=== PATIENT | male | born 1960 | race Caucasian/White ===

== ENCOUNTER 2020-02-19 10:27 | Observation (INO) | payer OTHER, SELFPAY ==
[2020-02-19] VITALS (12 sets, daily range): BP systolic 113–154; BP diastolic 64–99; PULSE 67–96; RESP 12–24; TEMP 35.8–36.7; O2SAT 94–100
--- NOTE | ~2020-02-19 | XR_ITS ---
EXAMINATION: XR retrograde pyelo w/stent RT DATE: 02/19/2020 17:19 INDICATION: Right ureteral stones. TECHNIQUE: 5 intraoperative fluoroscopic views of the abdomen and pelvis were obtained. I was not pre sent. Fluoroscopy exposure time was 25 seconds. COMPARISON: None. FINDINGS: The right-sided retrograde pyelogram is unremarkable. The final images demonstrate a right internal ureteral stent in expected position. IMPRESSION: 1. Right internal ureteral stent in expected position. Reviewed, dictated and finalized at location A. OPERATOR
--- NOTE | ~2020-02-19 | CT_ITS ---
EXAMINATION: CT abdomen pelvis wo con DATE: 02/19/2020 11:05 INDICATION: Right lower quadrant and flank pain TECHNIQUE: Computed tomography (CT) of the abdomen and pelvis was performed without intravenous contr ast. The dose-length product (DLP) was 1126.19 mGy-cm. Automated exposure control and iterative recon struction technique were employed. COMPARISON: None FINDINGS: There is a 5 mm nodule of the left lower lobe. Mild dependent atelectasis is noted. The hea rt size is normal. There is a small sliding hiatal hernia. A 2.4 cm cyst is present in the left hepat ic lobe. The spleen, pancreas, gallbladder, and adrenal glands are normal. The left kidney is unremar kable. There is an 8 mm x 2 mm stone in the distal right ureter at the ureterovesicular junction. An adjacent 2 mm stone is seen more proximally in the ureter. There is moderate right hydroureteronephro sis. The appendix is normal. No pathologically enlarged abdominal or pelvic lymph nodes are identifie d. There is no free intraperitoneal gas or evidence of bowel obstruction. Colonic diverticulosis is p resent without evidence of diverticulitis. There is moderate lumbar spondylosis. There are fat-contai vangie umbilical and bilateral inguinal hernias. IMPRESSION: 1. Stones in the right distal ureter at the ureterovesicular junction causing moderate right hydroure teronephrosis. Reviewed, dictated and finalized at location A. RVISOR MACHINING IMPRESSION: 1. Stones in the right distal ureter at the ureterovesicular junction causing m oderate right hydroureteronephrosis.
--- NOTE | ~2020-02-19 | XR_ITS ---
EXAMINATION: XR abdomen/kub 1V INDICATION: Right flank pain TECHNIQUE: Supine views of the abdomen were obtained on 2 radiographs. COMPARISON: CT from today FINDINGS: The known stones of the right ureterovesicular junction described on CT are not identified. The bowel gas pattern is normal. There is no free intraperitoneal gas. Lumbar spondylosis is noted. IMPRESSION: 1. Known right ureterovesicular junction stones not identified. Reviewed, dictated and finalized at location A. RMATION SERVICES TECH
--- NOTE | 2020-02-19 10:54 | PC.NURSE ---
Pt to CT scan via stretcher.
[2020-02-19 11:01] LABS: Basophils Percent Auto 0.3 % (0.2-1.2); Eosinophils Absolute Auto 0.1 K/mm3 (0-0.3); Eosinophils Percent Auto 0.6 % (0-4.4); Hemoglobin 16.5 g/dL (14.0-18.0); Immature Granulocyte Absolute 0.04 K/mm3 (0.00-0.031); Immature Granulocyte Percent A 0.3 % (0-0.5); Lymphocytes Absolute Auto 0.92 K/mm3 (0.9-3.2); Lymphocytes Percent Auto 6.9 % (18.3-44.2); Mean Corpuscular HGB Conc 35.1 g/dl (32-36); Mean Corpuscular Hemoglobin 30.7 pg (26-34); Mean Corpuscular Volume 87.4 fl (80-100); Mean Platelet Volume 10.4 fl (7.4-10.4); Monocytes Absolute Auto 0.3 K/mm3 (0.1-0.6); Monocytes Percent Auto 2.2 % (2.6-8.5); Neutrophils Percent Auto 89.7 % (45.5-73.1); Platelet Count Result 289 k/mm3 (150-375); Red Blood Count 5.38 M/mm3 (4.6-6.20); Red Cell Distribution Width 12.1 % (11.5-14.5); White Blood Count 13.4 K/mm3 (4.5-10.0)
[2020-02-19] MEDS: MORPHINE SULFATE (*CRX) 4 MG/ML INJ IV PUSH (11:09)
[2020-02-19] MEDS: SODIUM CHLORIDE 0.9% IV 1,000 ML 999 ML IV CONT (11:09)
[2020-02-19] MEDS: ONDANSETRON INJ 4 MG/2 ML VIAL IV PUSH (11:09)
[2020-02-19] MEDS: FAMOTIDINE 20 MG/2 ML VIAL IV PUSH (11:09)
--- NOTE | 2020-02-19 11:09 | ED.ABDPAIN ---
HPI - Abdominal Pain General Chief Complaint: Abdominal Pain <Martin Gallardo PA-C - Last Filed: 02/19/20 12:21> Stated Complaint: RLQ pain <Martin Gallardo PA-C - Last Filed: 02/19/20 12:21> Time Seen by Provider: 02/19/20 10:37 <Martin Gallardo PA-C - Last Filed: 02/19/20 12:21> Source: patient and other <DERRICK Whitman Last Filed: 02/19/20 12:21> Mode of arrival: ambulatory <Martin Gallardo PA-C - Last Filed: 02/19/20 12:21> Limitations: no limitations <Martin Gallardo PA-C - Last Filed: 02/19/20 12:21> History of Present Illness HPI narrative: Patient is a 59-year-old male who presents from urgent care with chief complaint of right flank pain notes sudden onset of stabbing sharp pain in the right flank and to the lower right abdomen denies fever chills does note nausea has history of urolithiasis on the left in the past did not take any medications for this nor does he take daily medications on arrival is in the room presenting uncomfortable but in no distress <Martin Gallardo PA-C - Last Filed: 02/19/20 12:21> Related Data Home Medications: Home Medications Medication Instructions Recorded Confirmed aspirin 81 mg tablet,delayed 81 mg PO DAILY 08/01/19 release <Martin Gallardo PA-C - Last Filed: 02/19/20 12:21> Allergies/Adverse Reactions: Allergies Allergy/AdvReac Type Severity Reaction Status Date / Time No Known Allergies Allergy Verified 02/19/20 10:36 <Martin Gallardo PA-C - Last Filed: 02/19/20 12:21> Review of Systems Review of Systems: All systems reviewed & are unremarkable except as noted in HPI and below <Martin Gallardo PA-C - Last Filed: 02/19/20 12:21> [facility] Past Medical History Medical History: Medical History Erectile dysfunction Hypertension Mixed hyperlipidemia Sleep apnea <DERRICK Whitman Last Filed: 02/19/20 12:21> Family History Family History: Family History Other Carcinoma of colon Cerebrovascular accident Family history of coronary artery disease Family history of malignant neoplasm of breast in first degree relative Malignant neoplasm of prostate <Martin Gallardo PA-C - Last Filed: 02/19/20 12:21> Social History Social History: Social History Smoking status: Never smoker Second hand tobacco smoke exposure: No Alcohol intake: never <Martin Gallardo PA-C - Last Filed: 02/19/20 12:21> Exam Narrative: Exam Narrative: GENERAL: Well-appearing, well-nourished, uncomfortable and in no acute distress. HEAD: Normocephalic, atraumatic. EYES: PERRLA and EOMI. ENT: Nares clear, no rhinorrhea or epistaxis. Mucous membranes moist. CHEST: Clear to auscultation. No respiratory distress. No wheezes rales or rhonchi HEART: Regular rate and rhythm. No murmur heard. Normal peripheral pulses. ABDOMEN: Soft, right-sided abdominal tenderness to palpation, nondistended, normal active bowel sounds. EXTREMITIES: Normal range of motion. No edema. SKIN: Warm, dry, no rash. NEURO: No focal deficits. Alert and oriented x3. PSYCH: Normal mood and affect. <Martin Gallardo PA-C - Last Filed: 02/19/20 12:21> Course Course Emergency Course: Patient found to have urolithiasis will be placed in hospital to the urologist for stent placement today patient is afebrile nontoxic-appearing no distress at this time was given multiple doses of Dilaudid with improvement but does continue to have pain patient was given fluids as well and will be placed in hospital as noted is aware of recommendations and discussion with urology <Martin Gallardo PA-C - Last Filed: 02/19/20 12:21> HAND TIRE TRIMMER/PA Physician Supervision For this patient encounter, I reviewed the HAND TIRE TRIMMER or PA documentation, treatment plan, and medica
[2020-02-19 11:14] LABS: Alanine Aminotransferase 29 U/L (4-50); Albumin Level 4.7 g/dL (3.5-5.1); Alkaline Phosphatase 93 U/L (38-126); Anion Gap 9 mmol/L (8-16); Aspartate Amino Transferase 35 U/L (17-59); Bilirubin,Total 0.7 mg/dL (0.2-1.3); Blood Urea Nitrogen 15 mg/dL (9-20); Calcium 8.9 mg/dL (8.4-10.2); Carbon Dioxide 27 mmol/L (22-30); Chloride 106 mmol/L (98-107); Estimated CRCL calculation 83 ml/min; Estimated Glomerular Filt Rate > 60; Glucose 135 mg/dL (75-110); Lactic Acid Reflex 2.1 mmol/L (0.7-2.1); Lipase 47 U/L (23-300); Potassium 3.9 mmol/L (3.4-5.0); Sodium 142 mmol/L (137-145)
[2020-02-19] MEDS: HYDROmorphone HCL INJ (*CRX) 1 MG/ML SYR IV PUSH ×2 (11:35→12:13)
[2020-02-19 11:36] LABS: Add Urine Microscopic? YES; Appearance Urine Cloudy (Clear); Bacteria Urine Trace /hpf; Bilirubin Urine Negative (Negative); Blood Urine 3+ (Negative); Color Urine Yellow (Yellow); Glucose Urine UA Negative (Negative); Ketones Urine Trace mg/dL (Negative); Leukocyte Esterase Ur Negative LEU/UL (Negative); Mucus Urine Few /lpf; Nitrate Urine Negative (Negative); Protein Urine 1+ mg/dL (Negative); RBC Urine >75 /hpf (0-2); Specific Grav Ur 1.024 (1.001-1.035); Squamous Epithelial Cell Urine Rare /hpf (Few); Urobilinogen Urine Negative mg/dL (<2.0)
[2020-02-19 13:58] LABS: Reflex Lactic Acid Yes or No Add Lactic
[2020-02-19 15:00] LABS: Lactic Acid 1.6 mmol/L (0.7-2.1)
--- NOTE | 2020-02-19 15:17 | PC.NURSE ---
This patient, Pete Larose, was admitted to Medical Room 261-01. Patient/family oriented to hospital policies and general routines including ID bracelet, bed and alarms, visiting hours, pain management, procedures, bathroom and other care routines, personal items, smoking policy, room service/diet, and visiting hours. Information on how to activate the Rapid Response Team has been discussed. Patient/Family are encouraged to report perceived risks to care and to ask questions if they do not understand what they are told or what they should do.
--- NOTE | 2020-02-19 15:38 | PM.IMHP ---
H&P: HPI History of Present Illness Date/Time: 02/19/20 15:38 Chief complaint: Urolithiasis Narrative: Pete Larose is a 59 year old male with a history of urolithiasis who presents with sudden on set of right flank pain that began yesterday. He reports the pain is at his right back/flank radiating to his right inguinal area. He reports nausea but not vomiting. He denies fevers, chills, hematuria. He passed a stone several years ago and his symptoms were similar. Review of Systems Review of Systems: All systems reviewed & are unremarkable except as noted in HPI and below Constitutional: Constitutional: Reports as per HPI and Reports no additional constitutional complaints Eyes: Eyes: Reports as per HPI and Reports no additional eye complaints ENT: Reports as per HPI and Reports Normal hearing present Cardiovascular: Cardiovascular: Reports no additional cardiovascular complaints and Denies chest pain Respiratory: Respiratory: Reports no additional respiratory complaints and Reports no additional respiratory complaints Gastrointestinal: Gastrointestinal: Reports no additional gastrointestinal complaints Genitourinary: Genitourinary: Denies hematuria, Denies oliguria and Denies dysuria Musculoskeletal: Musculoskeletal: Reports no additional musculoskeletal complaints Integumentary/Breasts: Skin/Breast: Reports system reviewed and no additional complaints, except as docu Neurologic: Reports system reviewed and no additional complaints, except as documented and Reports as per HPI Psychiatric: Psychiatric: Reports no additional psychiatric complaints Endocrine: Endocrine: Reports no additional endocrine complaints and Reports as per HPI Hematologic/Lymphatic: Hematologic/Lymphatic: Reports no additional hematologic/lymphatic complaints Allergic/Immunologic: Allergic/Immunologic: Reports no additional allergic/immunologic complaints [facility] Past Medical History Medical History Erectile dysfunction Hypertension Mixed hyperlipidemia Sleep apnea Family History Family History Sibling Acute myocardial infarction Cerebrovascular accident Mother Cerebrovascular accident Father Colon cancer Other Carcinoma of colon Family history of coronary artery disease Family history of malignant neoplasm of breast in first degree relative Malignant neoplasm of prostate Social History Social History Smoking status: Never smoker Second hand tobacco smoke exposure: No Alcohol intake: former Substance use: current Substance use type: marijuana Last use: once/twice a year Gender identity (if verbalized by the patient): Male Sexual Orientation (if Verbalized by the Patient): Straight or Heterosexual Spiritual care concerns: No Meds Home Medications and Allergies Home Medications Medication Instructions Recorded Confirmed Type simvastatin 10 mg tablet 10 mg PO DAILY #90 tablet 06/27/19 Rx aspirin 81 mg tablet,delayed 81 mg PO DAILY 08/01/19 History release sildenafil 100 mg tablet 100 mg PO DAILY PRN #9 tablet 01/17/20 01/17/20 Rx metoprolol tartrate 25 mg tablet 12.5 mg PO BID #90 tablet 01/24/20 Rx Allergies Allergy/AdvReac Type Severity Reaction Status Date / Time No Known Allergies Allergy Verified 02/19/20 10:36 Vital Signs Vital Signs - 24 hr 02/19/20 10:30 02/19/20 11:39 02/19/20 11:41 Temperature 96.5 F L Pulse Rate 67 77 77 Respiratory Rate 18 15 15 Blood Pressure 150/87 H 154/99 H 154/99 H Pulse Oximetry 97 100 100 02/19/20 13:42 02/19/20 14:20 Temperature Pulse Rate 72 70 Respiratory Rate 24 H 22 H Blood Pressure 147/89 H Pulse Oximetry 94 94 Exam Const: General: cooperative, healthy appearing, comfortable, no acute distress, well developed, alert, awake and Physically active;
--- NOTE | 2020-02-19 15:42 | WPDANESEPP ---
Anes - Eval Pre Procedure Procedure: Cystoscopy Date/Time: 02/19/20 15:42 Pre Op Diagnosis: Urolithiasis Patient Data Age: 59 Gender: M Height: 1.78 m Weight: 104.3 kg Last Vital Signs Temp 35.8 C L 02/19/20 10:30 Pulse 70 02/19/20 14:20 Resp 22 H 02/19/20 14:20 BP 147/89 H 02/19/20 13:42 Pulse Ox 94 02/19/20 14:20 Allergies Allergy/AdvReac Type Severity Reaction Status Date / Time No Known Allergies Allergy Verified 02/19/20 10:36 Home Medications Medication Instructions Recorded Confirmed Type simvastatin 10 mg tablet 10 mg PO DAILY #90 tablet 06/27/19 02/19/20 Rx aspirin 81 mg tablet,delayed 81 mg PO DAILY 08/01/19 02/19/20 History release sildenafil 100 mg tablet 100 mg PO DAILY PRN #9 tablet 01/17/20 02/19/20 Rx metoprolol tartrate 25 mg tablet 12.5 mg PO BID #90 tablet 01/24/20 02/19/20 Rx Laboratory Tests 02/19/20 02/19/20 02/19/20 10:51 10:51 10:51 WBC 13.4 K/mm3 H K/mm3 (4.5-10.0) RBC 5.38 M/mm3 M/mm3 (4.6-6.20) Hgb 16.5 g/dL g/dL (14.0-18.0) Hct 47.0 % % (42.0-52.0) MCV 87.4 fl fl (80-100) MCH 30.7 pg pg (26-34) MCHC 35.1 g/dl g/dl (32-36) RDW 12.1 % % (11.5-14.5) Plt Count 289 k/mm3 k/mm3 (150-375) MPV 10.4 fl fl (7.4-10.4) Immature Gran % (Auto) 0.3 % % (0-0.5) Neut % (Auto) 89.7 % H % (45.5-73.1) Lymph % (Auto) 6.9 % L % (18.3-44.2) [place] % (Auto) 2.2 % L % (2.6-8.5) Eos % (Auto) 0.6 % % (0-4.4) Baso % (Auto) 0.3 % % (0.2-1.2) Lymph # (Auto) 0.92 K/mm3 K/mm3 (0.9-3.2) [place] # (Auto) 0.3 K/mm3 K/mm3 (0.1-0.6) Eos # (Auto) 0.1 K/mm3 K/mm3 (0-0.3) Baso # (Auto) 0.0 K/mm3 K/mm3 (0.0-0.1) Abs Immat Gran (auto) 0.04 K/mm3 H K/mm3 (0.00-0.031) Absolute Neuts (auto) 12.0 K/mm3 H K/mm3 (1.3-6.7) Absolute Nucleated RBC 0.0 K/mm3 K/mm3 (0.0-0.012) Nucleated RBC % 0.0 % % (0.0-0.2) Sodium 142 mmol/L mmol/L (137-145) Potassium 3.9 mmol/L mmol/L (3.4-5.0) Chloride 106 mmol/L mmol/L (98-107) Carbon Dioxide 27 mmol/L mmol/L (22-30) Anion Gap 9 mmol/L mmol/L (8-16) BUN 15 mg/dL mg/dL (9-20) Creatinine 1.00 mg/dL mg/dL (0.7-1.3) Estim Creat Clear Calc 83 ml/min ml/min Estimated GFR > 60 (59 - ) Glucose 135 mg/dL H mg/dL (75-110) Lactic Acid 2.1 mmol/L mmol/L (0.7-2.1) Calcium 8.9 mg/dL mg/dL (8.4-10.2) Total Bilirubin 0.7 mg/dL mg/dL (0.2-1.3) AST 35 U/L U/L (17-59) ALT 29 U/L U/L (4-50) Alkaline Phosphatase 93 U/L U/L (38-126) Total Protein 8.0 g/dL g/dL (6.3-8.2) Albumin 4.7 g/dL g/dL (3.5-5.1) Lipase 47 U/L U/L (23-300) Urine Color Urine Appearance Urine pH Ur Specific [place] Protein Urine Glucose (UA) Urine Ketones Ur Blood (Man) Urine Nitrate Urine Bilirubin Urine Urobilinogen Leukocyte Esterase Rfl Urine RBC Urine WBC Ur Squamous Epith Cells Urine Bacteria Urine Mucus 02/19/20 02/19/20 11:09 14:40 WBC RBC Hgb Hct MCV MCH MCHC RDW Plt Count MPV Immature Gran % (Auto) Neut % (Auto) Lymph % (Auto) [place] % (Auto) Eos % (Auto) Baso % (Auto) Lymph # (Auto) [place] # (Auto) Eos # (Auto) Baso # (Auto) Abs Immat Gran (auto) Absolute Neuts (auto) Absolute Nucleated RBC
[2020-02-19] MEDS: LACTATED RINGERS 1,000 ML 125 ML IV CONT (15:49)
--- NOTE | 2020-02-19 16:34 | P.PNAN_ITS ---
Anes - Eval Final PreProcedure Day of Procedure 02/19/20 16:34 Patient weight: obese Heart: regular rate and rhythm Lungs: clear to auscultation Airway: Mallampati scale class II Neurological: alert and oriented Last oral intake: >/= 8 hours ASA classification: III Emergent: yes Anesthetic plan: proceed Anesthesia type and monitoring: general LMA and standard monitoring Informed Consent: The patient's anesthetic plan and its attendant risks and b enefits were discussed with the patient/family/POA. Questions were solicited and answers provided to the satisfaction of the patient/family/POA.
--- NOTE | 2020-02-19 16:36 | PC.NURSE ---
To OR per bed, IV saline locked.
--- NOTE | 2020-02-19 16:37 | WPDHPUPDATE1 ---
History and Physical Update Update Date/Time: 02/19/20 16:37 History and Physical has been reviewed, including an updated exam of the patient. There are NO changes in the patient's condition. Risks, benefits, and alternatives have been discussed and questions answered. Patient agrees to proceed with procedure.
--- NOTE | 2020-02-19 17:16 | PM.PROC ---
Procedure Note - Detailed Date of procedure: 02/19/20 Pre-op diagnosis: Urolithiasis Post-op diagnosis: same Procedure performed: Cystoscopy and right ureteral stent placement. Right Ureteral dilation Right retrograde pyelogram Fluoroscopy and interpretation of images, less than 1 hour. Description of procedure: After a discussion of the benefits, risks and alternatives, the patient offered informed written consent. He was taken to the operating room and placed on the table in the supine position. Anesthesia was induced and an LMA was placed without incident. He was transferred to the dorsal lithotomy position and prepped and draped in the standard sterile fashion. A call to order was made to confirm patient identity and proper procedure. The procedure began with the atraumatic placement of a 22F cystoscope. Panycystoscopy was performed with no bladder masses, lesions or stones, the patient had lateral lobe hyperplasia and a median lobe. The right ureteral orifice was approached with the scope and a 5F was advanced through the working channel and a glidewire advanced to the renal pelvis under fluoroscopic guidance. The cystoscope was removed and over the wire the ureteral orifice was dilated with 8-10F coaxial dilators. A [employer] wire was advanced. A semi-rigid ureteroscope was advanced per urethra and I attempted to advance into the distal ureter. The distal ureter would not accomodate the ureteroscope despite multiple attempts. I then removed the ureteroscope, placed the cystoscope over the wire and advanced a 6F variable length stent with an excellent curl noted in the renal pelvis. The wire was removed forming a curl in the bladder. The bladder was drained and the cystoscope removed atraumatically. He was cleaned and dried of betadine of prep solution and transferred to the supine position. He was awoken from anesthesia having suffered no apparent complication. Anesthesia: GLMA Surgeon: Martir Farley MD Estimated blood loss (mL): 2 Drains: Yes (6F variable length stent-right) Packing: No Pathology: none sent Complications: No immediate complications Condition: stable Disposition: PACU Findings: 1. Appropriate placement of a right ureteral stent with an excellent curl in the renal pelvis and bladder. 2. No bladder masses, lesions or stones. 3. Unable to safely access the distal ureter, stent placed.
[2020-02-19] MEDS: LACTATED RINGERS 1,000 ML 30 ML IV CONT (17:21)
--- NOTE | 2020-02-19 17:21 | SUR.OPER ---
stent right contour vl 6fr lot [id number], exp 12-20-22
--- NOTE | 2020-02-19 18:15 | PC.NURSE ---
Returned from OR per bed. Report received from Ioana JASMINE.
--- NOTE | 2020-02-19 18:48 | PM.DS ---
DS: Admitting Diagnosis Admitting Diagnosis Admitting Diagnosis: Urolithiasis DS: Summary Time Spent with Patient Time attestation: Total time spent providing and/or coordinating discharge services:30m Exam Const: General: cooperative, healthy appearing, comfortable, no acute distress, well developed, alert, awake and Physically active; No acute distress HENMT: Ears: hearing grossly normal bilaterally General nose exam: Normal external nose present Resp: Effort & Inspection: normal respiratory effort, able to speak in complete sentences, normal respiratory pattern and no audible wheezes Cardio: Jugular venous distension: JVD present Rate: regular rate Rhythm: regular rhythm GI: Inspection: normal to inspection GI Palp: No abdominal tenderness Skin: General skin exam: normal color and no rashes or lesions noted Neuro: General: oriented to person, oriented to place and oriented to time Psych: Appearance: grossly normal and well kempt Speech and movement: Normal speech and movement present Attitude: cooperative DS: Data Data Completed and Pending Labs on day of discharge: Labs from last 24 hours 02/19/20 02/19/20 02/19/20 14:40 11:09 10:51 WBC RBC Hgb Hct MCV MCH MCHC RDW Plt Count MPV Immature Gran % (Auto) Neut % (Auto) Lymph % (Auto) [place] % (Auto) Eos % (Auto) Baso % (Auto) Lymph # (Auto) [place] # (Auto) Eos # (Auto) Baso # (Auto) Abs Immat Gran (auto) Absolute Neuts (auto) Absolute Nucleated RBC Nucleated RBC % Sodium Potassium Chloride Carbon Dioxide Anion Gap BUN Creatinine Estim Creat Clear Calc Estimated GFR Glucose Lactic Acid 1.6 2.1 Calcium Total Bilirubin AST ALT Alkaline Phosphatase Total Protein Albumin Lipase Urine Color Yellow Urine Appearance Cloudy H Urine pH 5.0 Ur Specific [place] 1.024 Urine Protein 1+ H Urine Glucose (UA) Negative Urine Ketones Trace Ur Blood (Man) 3+ H Urine Nitrate Negative Urine Bilirubin Negative Urine Urobilinogen Negative Leukocyte Esterase Rfl Negative Urine RBC >75 H Urine WBC 10-15 H Ur Squamous Epith Cells Rare Urine Bacteria Trace Urine Mucus Few H 02/19/20 02/19/20 10:51 10:51 WBC 13.4 H RBC 5.38 Hgb 16.5 Hct 47.0 MCV 87.4 MCH 30.7 MCHC 35.1 RDW 12.1 Plt Count 289 MPV 10.4 Immature Gran % (Auto) 0.3 Neut % (Auto) 89.7 H Lymph % (Auto) 6.9 L [place] % (Auto) 2.2 L Eos % (Auto) 0.6 Baso % (Auto) 0.3 Lymph # (Auto) 0.92 [place] # (Auto) 0.3 Eos # (Auto) 0.1 Baso # (Auto) 0.0 Abs Immat Gran (auto) 0.04 H Absolute Neuts (auto) 12.0 H Absolute Nucleated RBC 0.0 Nucleated RBC % 0.0 Sodium 142 Potassium 3.9 Chloride 106 Carbon Dioxide 27 Anion Gap 9 BUN 15 Creatinine 1.00 Estim Creat Clear Calc 83 Estimated GFR > 60 Glucose 135 H Lactic Acid Calcium 8.9 Total Bilirubin 0.7 AST 35 ALT 29 Alkaline Phosphatase 93 Total Protein 8.0 Albumin 4.7 Lipase 47 Urine Color Urine Appearance Urine pH Ur Specific [place] Urine Protein Urine Glucose (UA) Urine Ketones Ur Blood (Man) Urine Nitrate Urine Bilirubin Urine Urobilinogen Leukocyte Esterase Rfl Urine RBC Urine WBC Ur Squamous Epith Cells Urine Bacteria Urine Mucus Discharge Plan Discharge Attending physician on discharge: Martir Farley Discharging Clinician: Martir Farley Anticipated Discharge Date/Time: 02/19/20 20:42 Patient Disposition: Home, Self-Care Activity: may shower and unlimited Diet: as tolerated Discharge Instructions: Return to ER if you have fever, chills, pain uncontrolled with oral pain meds, nausea/vomiting, inability to void. Patient Instructions: Antibiotic Form Stand Alone Forms: General Discharge In
--- NOTE | 2020-02-19 19:41 | PC.NURSE ---
patient discharged per w/c to , home.
== END 2020-02-19 19:35 | disposition home or self-care (01) ==
LOC: ANHED 12:21 → ANH2MED 18:47
PROVIDERS: Emergency Medicine Emergency Medical Services; Admitting Provider Urology; Emergency Provider Emergency Medicine; PCP Family Medicine; Visit Provider Urology
PROC: (CPT 52352; principal; 2020-02-19 16:45)
DX: N13.2 Hydronephrosis with renal and ureteral calculous obstruction (principal); I10 Essential (primary) hypertension; E78.2 Mixed hyperlipidemia; G47.30 Sleep apnea, unspecified; N52.9 Male erectile dysfunction, unspecified; Z79.82 Long term (current) use of aspirin; E66.9 Obesity, unspecified; Z68.33 Body mass index [BMI] 33.0-33.9, adult
CPT/HCPCS: 52332; 36415; 74018; 74176; 74420; 80053; 81001; 83605; 83690; 85025; 87086; 87088; 96374; 96375; 96376; 99285; A9270; C1758; C1769; C2617; G0378; J0696; J1100; J1170; J1885; J2250; J2270; J2405; J2704; J3010; J7030; J7120; Q9966

== ENCOUNTER 2020-05-01 07:41 | Outpatient (CLI) | payer OTHER, SELFPAY ==
--- NOTE | ~2020-05-01 | XR_ITS ---
EXAMINATION: XR abdomen/kub 1V DATE: 05/01/2020 08:00 INDICATION: Right ureteral stone. TECHNIQUE: A supine view of the abdomen on 2 radiographs was obtained. COMPARISON: CT abdomen and pelvis 02/19/2020 FINDINGS: There are no dilated loops of bowel. There are vascular calcifications in the pelvis. There is no visible urolithiasis. IMPRESSION: 1. No visible urolithiasis. Reviewed, dictated and finalized at location A. SWARE ENGRAVER IMPRESSION: 1. No visible urolithiasis.
--- NOTE | ~2020-05-01 | US_ITS ---
EXAMINATION: US retroperitoneal comp DATE: 05/01/2020 08:10 INDICATION: Right ureteral stone TECHNIQUE: Multiple ultrasound grayscale images of the kidneys were obtained. COMPARISON: None. FINDINGS: The right kidney measures 12.8 x 5.7 x 5.7 cm. The left kidney measures 10.5 x 5.1 x 5.9 cm. The kidn eys demonstrate normal echogenicity. There is no hydronephrosis in either kidney. No stones identifi ed. The bladder is normal with bilateral ureteral jets seen on color Doppler. IMPRESSION: 1. Normal kidneys without hydronephrosis. Reviewed, dictated and finalized at location B. RIAL HANDLING CREW SUPERVISOR
== END 2020-05-01 07:42 | disposition home or self-care (01) ==
PROVIDERS: PCP Family Medicine; Visit Provider Urology
DX: N20.1 Calculus of ureter (principal)
CPT/HCPCS: 74018; 76770

== ENCOUNTER 2020-11-21 14:49 | Outpatient (CLI) | payer OTHER, SELFPAY ==
--- NOTE | ~2020-11-21 | XR_ITS ---
XR abdomen/kub 1V DATE: 11/21/2020 15:27 INDICATION: Right ureteral stone extraction TECHNIQUE: 2 supine AP views COMPARISON: 05/01/2020 KUB FINDINGS: There is rotatory dextroscoliosis and degenerative disc disease of the lumbar spine. There is a prominent amount of fecal material in the right colon. There is no bowel obstruction. No urinary tract calcifications are identified. No visceromegaly is detected. The psoas shadows appea r intact. IMPRESSION: No radiographically detectable urinary tract calcified calculi Reviewed, dictated and finalized at Location A. Reviewed, dictated and finalized at location A.
== END 2020-11-21 14:50 | disposition home or self-care (01) ==
PROVIDERS: PCP Family Medicine; Visit Provider Urology
DX: N20.1 Calculus of ureter (principal)
CPT/HCPCS: 74018

== ENCOUNTER 2021-01-21 10:20 | Outpatient (CLI) | payer OTHER, SELFPAY ==
[2021-01-21 10:54] LABS: Hematocrit 49.1 % (42.0-52.0); Hemoglobin 16.8 g/dL (14.0-18.0); Mean Corpuscular HGB Conc 34.2 g/dl (32-36); Mean Corpuscular Hemoglobin 31.2 pg (26-34); Mean Corpuscular Volume 91.3 fl (80-100); Mean Platelet Volume 10.5 fl (7.4-10.4); Platelet Count Result 272 k/mm3 (150-375); Red Blood Count 5.38 M/mm3 (4.6-6.20); Red Cell Distribution Width 12.4 % (11.5-14.5)
[2021-01-21 11:15] LABS: Hemoglobin A1C 5.2 % (<5.7)
[2021-01-21 11:21] LABS: Alanine Aminotransferase 29 U/L (4-50); Alkaline Phosphatase 87 U/L (38-126); Anion Gap 10 mmol/L (8-16); Aspartate Amino Transferase 34 U/L (17-59); Bilirubin,Total 0.9 mg/dL (0.2-1.3); Blood Urea Nitrogen 14 mg/dL (9-20); Calcium 9.1 mg/dL (8.4-10.2); Carbon Dioxide 30 mmol/L (22-30); Chloride 104 mmol/L (98-107); Cholesterol 182 mg/dL (0-200); Estimated Glomerular Filt Rate > 60; Glucose 99 mg/dL (65-110); HDL Direct 71 mg/dL; Potassium 4.5 mmol/L (3.4-5.0); Sodium 144 mmol/L (137-145); Triglycerides 78 mg/dL (<150)
[2021-01-21 11:34] LABS: LDL Cholesterol Direct 88 mg/dL
[2021-01-21 11:54] LABS: Prostate Specific Antigen 1.3 ng/mL (< OR = 4.0)
== END 2021-01-21 10:21 | disposition home or self-care (01) ==
LOC: ANHLAB 10:21
PROVIDERS: PCP Family Medicine; Visit Provider Family Medicine
DX: Z00.00 Encounter for general adult medical examination without abnormal findings (principal); D72.829 Elevated white blood cell count, unspecified; Z12.5 Encounter for screening for malignant neoplasm of prostate; I10 Essential (primary) hypertension; E11.9 Type 2 diabetes mellitus without complications; E78.2 Mixed hyperlipidemia
CPT/HCPCS: 36415; 80053; 80061; 83036; 84153; 85027; G0103

== ENCOUNTER 2021-07-10 06:34 | Outpatient (CLI) | payer OTHER, SELFPAY ==
[2021-07-10 06:55] LABS: Hemoglobin A1C 5.1 % (<5.7)
[2021-07-10 06:59] LABS: Alanine Aminotransferase 25 U/L (4-50); Albumin Level 4.3 g/dL (3.5-5.1); Alkaline Phosphatase 80 U/L (38-126); Anion Gap 4 mmol/L (8-16); Aspartate Amino Transferase 33 U/L (17-59); Bilirubin,Total 0.7 mg/dL (0.2-1.3); Blood Urea Nitrogen 17 mg/dL (9-20); Calcium 8.6 mg/dL (8.4-10.2); Carbon Dioxide 30 mmol/L (22-30); Chloride 103 mmol/L (98-107); Cholesterol 202 mg/dL (0-200); Estimated Glomerular Filt Rate > 60; Glucose 114 mg/dL (65-110); HDL Direct 57 mg/dL; Potassium 4.7 mmol/L (3.4-5.0); Sodium 137 mmol/L (137-145); Triglycerides 69 mg/dL (<150)
[2021-07-10 07:10] LABS: LDL Cholesterol Direct 104 mg/dL
== END 2021-07-10 06:35 | disposition home or self-care (01) ==
PROVIDERS: PCP Family Medicine; Visit Provider Family Medicine
DX: R73.09 Other abnormal glucose (principal); E78.2 Mixed hyperlipidemia; I10 Essential (primary) hypertension; R20.2 Paresthesia of skin
CPT/HCPCS: 36415; 80053; 80061; 83036

== ENCOUNTER 2022-01-02 09:53 | Outpatient (CLI) | payer OTHER, SELFPAY ==
[2022-01-02 10:20] LABS: Basophils Percent Auto 0.3 % (0.2-1.2); Eosinophils Absolute Auto 0.5 K/mm3 (0-0.3); Hematocrit 46.3 % (42.0-52.0); Immature Granulocyte Absolute 0.02 K/mm3 (0.00-0.031); Immature Granulocyte Percent A 0.3 % (0-0.5); Lymphocytes Absolute Auto 1.45 K/mm3 (0.9-3.2); Lymphocytes Percent Auto 22.8 % (18.3-44.2); Mean Corpuscular HGB Conc 34.6 g/dl (32-36); Mean Corpuscular Hemoglobin 30.1 pg (26-34); Mean Platelet Volume 10.4 fl (7.4-10.4); Monocytes Absolute Auto 0.4 K/mm3 (0.1-0.6); Monocytes Percent Auto 6.9 % (2.6-8.5); Neutrophils Absolute Auto 3.9 K/mm3 (1.3-6.7); Neutrophils Percent Auto 61.7 % (45.5-73.1); Platelet Count Result 271 k/mm3 (150-375); Red Blood Count 5.32 M/mm3 (4.6-6.20); Red Cell Distribution Width 12.5 % (11.5-14.5); White Blood Count 6.4 K/mm3 (4.5-10.0)
[2022-01-02 10:34] LABS: Hemoglobin A1C 5.4 % (<5.7)
[2022-01-02 10:36] LABS: Alanine Aminotransferase 32 U/L (6-50); Albumin Level 4.3 g/dL (3.5-5.1); Alkaline Phosphatase 82 U/L (38-126); Anion Gap 7 mmol/L (8-16); Aspartate Amino Transferase 29 U/L (17-59); Bilirubin,Total 0.8 mg/dL (0.2-1.3); Blood Urea Nitrogen 11 mg/dL (9-20); Calcium 8.6 mg/dL (8.4-10.2); Carbon Dioxide 28 mmol/L (22-30); Chloride 103 mmol/L (98-107); Cholesterol 187 mg/dL (0-200); Estimated Glomerular Filt Rate > 60; Glucose 97 mg/dL (65-110); HDL Direct 57 mg/dL; Potassium 4.7 mmol/L (3.4-5.0); Sodium 138 mmol/L (137-145); Triglycerides 68 mg/dL (<150)
[2022-01-02 10:47] LABS: LDL Cholesterol Direct 100 mg/dL
[2022-01-02 11:23] LABS: Prostate Specific Antigen 1.1 ng/mL (< OR = 4.0)
== END 2022-01-02 09:54 | disposition home or self-care (01) ==
LOC: ANHLAB 09:54
PROVIDERS: PCP Family Medicine; Visit Provider Family Medicine
DX: D72.829 Elevated white blood cell count, unspecified (principal); E78.2 Mixed hyperlipidemia; I10 Essential (primary) hypertension; R73.09 Other abnormal glucose; Z12.5 Encounter for screening for malignant neoplasm of prostate
CPT/HCPCS: 36415; 80053; 80061; 83036; 84153; 85025; G0103

== ENCOUNTER 2022-07-14 11:26 | Outpatient (CLI) | payer OTHER, SELFPAY ==
[2022-07-14 12:13] LABS: Hemoglobin A1C 5.2 % (<5.7)
[2022-07-14 12:18] LABS: Alanine Aminotransferase 27 U/L (6-50); Albumin Level 4.3 g/dL (3.5-5.1); Alkaline Phosphatase 76 U/L (38-126); Anion Gap 4 mmol/L (8-16); Aspartate Amino Transferase 29 U/L (17-59); Blood Urea Nitrogen 13 mg/dL (9-20); Calcium 8.2 mg/dL (8.4-10.2); Carbon Dioxide 29 mmol/L (22-30); Chloride 106 mmol/L (98-107); Cholesterol 176 mg/dL (0-200); Estimated Glomerular Filt Rate > 60; Glucose 83 mg/dL (65-110); HDL Direct 53 mg/dL; Potassium 4.2 mmol/L (3.4-5.0); Sodium 139 mmol/L (137-145); Triglycerides 91 mg/dL (<150)
[2022-07-14 12:24] LABS: LDL Cholesterol Direct 90 mg/dL
== END 2022-07-14 11:27 | disposition home or self-care (01) ==
LOC: ANHLAB 11:27
PROVIDERS: PCP Family Medicine; Visit Provider Family Medicine
DX: R73.03 Prediabetes (principal); Z00.00 Encounter for general adult medical examination without abnormal findings; E78.2 Mixed hyperlipidemia; I10 Essential (primary) hypertension
CPT/HCPCS: 36415; 80053; 80061; 83036

== ENCOUNTER → 2022-10-01 10:44 | Outpatient (CLI) | payer OTHER, SELFPAY ==
--- NOTE | ~2022-10-01 | US_ITS ---
Renal-Bladder ultrasound Clinical History: Kidney stone Technique: Real-time sonographic imaging of the kidneys and urinary bladder was performed. Findings: The right kidney measures 12.6 cm in length and the left kidney measures 10.2 cm. There is no hydronephrosis or renal calculus identified. Renal cortical echogenicity is within normal limits. No renal mass lesion is identified. The urinary bladder is partially distended at the time of this exam. No intraluminal echoes are ident ified. No abnormal wall thickening is seen. Impression: Unremarkable ultrasound of the kidneys and urinary bladder. Reviewed, dictated and finalized at location M. Impression: Unremarkable ultrasound of the kidneys and urinary bladder.
--- NOTE | ~2022-10-01 | XR_ITS ---
EXAMINATION: XR abdomen/kub 1V INDICATION: History of kidney stones TECHNIQUE: Supine views of the abdomen were obtained on 2 radiographs. COMPARISON: 11/21/2020 FINDINGS: No urolithiasis is identified. There are phleboliths of the pelvis. The bowel gas pattern i s normal. There is moderate lower lumbar spondylosis. Mild osteoarthritis is noted in the hips. IMPRESSION: 1. No urolithiasis identified. Reviewed, dictated and finalized at location []
== END ==
PROVIDERS: PCP Urology; Visit Provider Urology
DX: N20.0 Calculus of kidney (principal)
CPT/HCPCS: 74018; 76775

== ENCOUNTER 2023-01-18 09:11 | Emergency (ER) | payer OTHER, SELFPAY ==
--- NOTE | ~2023-01-18 | CT_ITS ---
EXAMINATION: CT abdomen pelvis wo con DATE: 01/18/2023 10:12 INDICATION: Left flank pain. TECHNIQUE: Computed tomography (CT) of the abdomen and pelvis was performed without intravenous contr ast. Automated exposure control and iterative reconstruction technique were employed. The dose-length product was 1322.22 mGy-cm. COMPARISON: CT abdomen and pelvis 02/19/2020 FINDINGS: The visualized portions of the lung bases demonstrate mild atelectasis. No pleural effusion . The heart size is normal. No pericardial effusion. There is a 2.3 cm cyst in the liver. The gallbla dder, spleen, pancreas, adrenal glands are normal. There is a 1 mm stone in right kidney. There is as ymmetric edema around left kidney. There is mild left hydronephrosis and hydroureter. There is a 3 mm stone in distal left ureter. The bladder is decompressed. The prostate is mildly enlarged. There are bilateral inguinal hernias containing fat. There is diverticulosis of the colon without evidence of diverticulitis. There are no dilated loops of bowel. The appendix is normal. There are no pathologica lly enlarged lymph nodes. There is no free intraperitoneal fluid. There is lumbar dextroscoliosis and severe spondylosis. IMPRESSION: 1. 3 mm stone in distal left ureter with mild left hydronephrosis and hydroureter. 2. 1 mm nonobstructing right kidney stone. 3. Bilateral inguinal hernias containing fat. Reviewed, dictated and finalized at location A. IMPRESSION: 1. 3 mm stone in distal left ureter with mild left hydronephrosis and hydrouret er. 2. 1 mm nonobstructing right kidney stone. 3. Bilateral inguinal hernias containing fat.
--- NOTE | ~2023-01-18 | XR_ITS ---
EXAMINATION: XR abdomen/kub 1V DATE: 01/18/2023 10:14 INDICATION: Left flank pain. TECHNIQUE: A supine view of the abdomen on 2 radiographs was obtained. COMPARISON: CT abdomen and pelvis 01/18/2023 FINDINGS: There are no dilated loops of bowel. There are phleboliths in left pelvis. IMPRESSION: 1. No visible urolithiasis. Reviewed, dictated and finalized at location A. IMPRESSION: 1. No visible urolithiasis.
[2023-01-18 09:13] VITALS: BP 141/93; PULSE 63; RESP 20; TEMP 36.4; O2SAT 100
--- NOTE | 2023-01-18 09:32 | ED.BACK ---
HPI - Back Pain/Injury General Chief Complaint: Back Pain/Injury Stated Complaint: flank pain Time Seen by Provider: 01/18/23 09:12 Source: patient, RN notes reviewed and old records reviewed Mode of arrival: ambulatory Limitations: no limitations History of Present Illness HPI Narrative: This is a 62 year old male with history of renal calculi who presents for evaluation of left flank pain. Patient states he has been having intermittent left lower back aching for 1. 5 months. HE has been drinking lemon juice to dissolve suspected kidney stone. His pain worsened last night and this morning his pain moved to his left lower abdomen. He has associated nausea and vomiting. He took hydrocodone 5/325 mg 2 hours ago for pain without relief. He denies fever, chills, dysuria or hematuria. He had kidney stone 2 years ago and he states this pain feels similar. His urologist is Dr. Farley and he had unremarkable kub and renal US 3 months ago. He rates pain 12/14. Related Data Allergies Allergy/AdvReac Type Severity Reaction Status Date / Time No Known Allergies Allergy Verified 01/18/23 09:17 Review of Systems Constitutional: Constitutional: Denies weakness Cardiovascular: Cardiovascular: Denies syncope, Denies rapid heart rate, Denies irregular heart rhythm, Denies leg edema and Denies dyspnea Respiratory: Respiratory: Denies chest congestion, Denies hemoptysis, Denies excessive phlegm production and Denies dyspnea Gastrointestinal: Gastrointestinal: Reports abdominal pain, Denies hematochezia, Denies diarrhea, Reports nausea and Reports vomiting Genitourinary: Genitourinary: Denies hematuria, Denies dysuria, Denies penile discharge and Denies testicular pain Musculoskeletal: Musculoskeletal: Reports back pain, Denies joint swelling, Denies loss of height and Denies muscle weakness Neurologic: Denies syncope, Denies focal weakness and Denies weakness [facility] Past Medical History Medical History (Updated 01/18/23 @ 11:25 by Fidelina Vidal MD) Carpal tunnel syndrome of right wrist Erectile dysfunction H/O renal calculi Hypertension Mixed hyperlipidemia Prediabetes Sleep apnea Family History Family History Sibling Acute myocardial infarction Cerebrovascular accident Mother Cerebrovascular accident Father Colon cancer Other Carcinoma of colon Family history of coronary artery disease Family history of malignant neoplasm of breast in first degree relative Malignant neoplasm of prostate Social History Social History Smoking status: Never smoker Second hand tobacco smoke exposure: No Alcohol intake: former Substance use: current Substance use type: marijuana Last use: once/twice a year Lack of Transportation: No Lack of Food: Never True Current Housing: I Have Housing Concerned About Future Housing: No Difficulty Paying Gas/Electric Bills: No Difficulty Paying for Meds: No Currently Unemployed: No Education: Bachelor's Degree Difficulty w/ Childcare or Family Care: No Living arrangements: with family Additional occupation/education comments: Self employed Gender identity (if verbalized by the patient): Male Sexual Orientation (if Verbalized by the Patient): Straight or Heterosexual Spiritual care concerns: No Agree to blood products: Yes Exam Const: General: alert; No confusion or diaphoretic Nutritional Appearance: well nourished Orientation/consciousness: patient oriented x3 Other: appears to be in pain HENMT: Head: normal to inspection Eyes: EOM: EOMs intact bilaterally Chest: Chest palpation & inspection: normal inspection of the chest Resp: Effort & Inspection: normal respiratory effort Auscultation: clear to auscultation bilaterally Cardio: Rate: regular rate Rhythm: regular rhythm Heart sounds: no murmurs GI: GI Palp: Yes Soft
[2023-01-18 09:37] LABS: Basophils Percent Auto 0.3 % (0.2-1.2); Eosinophils Percent Auto 0.3 % (0-4.4); Hematocrit 46.7 % (42.0-52.0); Hemoglobin 15.9 g/dL (14.0-18.0); Immature Granulocyte Absolute 0.04 K/mm3 (0.00-0.031); Immature Granulocyte Percent A 0.3 % (0-0.5); Lymphocytes Absolute Auto 0.73 K/mm3 (0.9-3.2); Lymphocytes Percent Auto 6.1 % (18.3-44.2); Mean Corpuscular Hemoglobin 30.2 pg (26-34); Mean Corpuscular Volume 88.8 fl (80-100); Mean Platelet Volume 10.4 fl (7.4-10.4); Monocytes Absolute Auto 0.2 K/mm3 (0.1-0.6); Monocytes Percent Auto 1.8 % (2.6-8.5); Neutrophils Absolute Auto 10.9 K/mm3 (1.3-6.7); Neutrophils Percent Auto 91.2 % (45.5-73.1); Platelet Count Result 260 k/mm3 (150-375); Red Blood Count 5.26 M/mm3 (4.6-6.20)
[2023-01-18] MEDS: ONDANSETRON INJ 4 MG/2 ML VIAL IV PUSH (09:37)
[2023-01-18] MEDS: SODIUM CHLORIDE 0.9% IV 1,000 ML 999 ML IV CONT (09:37)
[2023-01-18] MEDS: HYDROmorphone HCL INJ (*CRX) 1 MG/ML SYR IV PUSH (09:37)
[2023-01-18 09:44] LABS: Appearance Urine Cloudy (Clear); Bacteria Urine None Seen /hpf; Bilirubin Urine Negative (Negative); Blood Urine 2+ (Negative); Color Urine Yellow (Yellow); Glucose Urine UA Negative (Negative); Ketones Urine 1+ mg/dL (Negative); Leukocyte Esterase Ur Negative LEU/UL (Negative); Nitrate Urine Negative (Negative); Non Pathogenic Casts 0-2; Protein Urine Trace mg/dL (Negative); Specific Grav Ur 1.025 (1.001-1.035); Squamous Epithelial Cell Urine None seen /hpf (Few); Urobilinogen Urine 0.2 mg/dL (<2.0); WBC Urine 0-5 /hpf
[2023-01-18 09:51] LABS: Alanine Aminotransferase 32 U/L (6-50); Albumin Level 4.5 g/dL (3.5-5.1); Alkaline Phosphatase 97 U/L (38-126); Anion Gap 6 mmol/L (8-16); Aspartate Amino Transferase 31 U/L (17-59); Bilirubin,Total 0.7 mg/dL (0.2-1.3); Blood Urea Nitrogen 13 mg/dL (9-20); Calcium 8.9 mg/dL (8.4-10.2); Carbon Dioxide 27 mmol/L (22-30); Chloride 104 mmol/L (98-107); Estimated CRCL calculation 80 ml/min; Estimated Glomerular Filt Rate > 60; Glucose 154 mg/dL (65-110); Lipase 41 U/L (23-300); Potassium 4.5 mmol/L (3.4-5.0); Sodium 137 mmol/L (137-145)
[2023-01-18 09:53] LABS: Add Urine Microscopic? YES
[2023-01-18] MEDS: TAMSULOSIN HCL 0.4 MG CAPSULE PO (10:40)
[2023-01-18] MEDS: KETOROLAC 30 MG/ML VIAL (*BKC) IV PUSH (10:48)
[2023-01-18 10:57] VITALS: BP 150/80; PULSE 63; O2SAT 93
== END 2023-01-18 11:33 | disposition home or self-care (01) ==
PROVIDERS: Emergency Provider General Practice; PCP Urology
DX: N13.2 Hydronephrosis with renal and ureteral calculous obstruction (principal); I10 Essential (primary) hypertension; E78.2 Mixed hyperlipidemia; G47.30 Sleep apnea, unspecified; R73.03 Prediabetes; Z87.442 Personal history of urinary calculi; K40.20 Bilateral inguinal hernia, without obstruction or gangrene, not specified as recurrent
CPT/HCPCS: 36415; 74018; 74176; 80053; 81001; 83690; 85025; 96361; 96374; 96375; 99284; A9270; J1170; J1885; J2405; J7030

== ENCOUNTER 2023-01-19 10:24 | Outpatient (CLI) | payer OTHER, SELFPAY ==
[2023-01-19 11:06] LABS: Alanine Aminotransferase 31 U/L (6-50); Albumin Level 4.1 g/dL (3.5-5.1); Alkaline Phosphatase 90 U/L (38-126); Anion Gap 6 mmol/L (8-16); Aspartate Amino Transferase 28 U/L (17-59); Bilirubin,Total 1.2 mg/dL (0.2-1.3); Blood Urea Nitrogen 17 mg/dL (9-20); Calcium 8.5 mg/dL (8.4-10.2); Carbon Dioxide 27 mmol/L (22-30); Chloride 102 mmol/L (98-107); Cholesterol 171 mg/dL (0-200); Estimated Glomerular Filt Rate 47; Glucose 105 mg/dL (65-110); HDL Direct 54 mg/dL; Potassium 3.9 mmol/L (3.4-5.0); Sodium 135 mmol/L (137-145); Triglycerides 115 mg/dL (<150)
[2023-01-19 11:36] LABS: Prostate Specific Antigen 1.1 ng/mL (< OR = 4.0)
[2023-01-20 07:02] LABS: LDL Cholesterol Direct 87 mg/dL
== END 2023-01-19 10:25 | disposition home or self-care (01) ==
LOC: ANHLAB 10:25
PROVIDERS: PCP Family Medicine; Visit Provider Family Medicine
DX: Z00.00 Encounter for general adult medical examination without abnormal findings (principal); I10 Essential (primary) hypertension; E78.2 Mixed hyperlipidemia
CPT/HCPCS: 36415; 80053; 80061; 84153; G0103

== ENCOUNTER 2023-01-29 07:57 | Outpatient (CLI) | payer OTHER, SELFPAY ==
[2023-01-29 19:51] LABS: Anion Gap 5 mmol/L (8-16); Blood Urea Nitrogen 16 mg/dL (9-20); Calcium 8.8 mg/dL (8.4-10.2); Carbon Dioxide 31 mmol/L (22-30); Chloride 102 mmol/L (98-107); Estimated Glomerular Filt Rate > 60; Glucose 83 mg/dL (65-110); Potassium 4.4 mmol/L (3.4-5.0); Sodium 138 mmol/L (137-145)
== END 2023-01-29 07:58 | disposition home or self-care (01) ==
LOC: ANHGOSHLAB 07:58
PROVIDERS: PCP Family Medicine; Visit Provider Family Medicine
DX: N28.9 Disorder of kidney and ureter, unspecified (principal)
CPT/HCPCS: 36415; 80048

== ENCOUNTER → 2023-02-05 08:11 | Outpatient (CLI) | payer OTHER, SELFPAY ==
--- NOTE | ~2023-02-05 | CT_ITS ---
EXAMINATION: CT abdomen pelvis wo con DATE: 02/05/2023 08:36 INDICATION: Left abdominal pain for one month. History of kidney stones. TECHNIQUE: Computed tomography (CT) of the abdomen and pelvis was performed without intravenous contr ast. Automated exposure control and iterative reconstruction technique were employed. Exam dose: 960 .53 mGy-cm total exam DLP. COMPARISON: 01/18/2023 KUB 01/18/2023 CT abdomen pelvis: 3 mm distal left ureteral calculus with mild left hydronephrosis and hy droureter and 1 mm nonobstructing right kidney stone FINDINGS: There is minimal focal atelectasis at the lung bases. Borderline heart size. No pericardial or pleural effusion. Small sliding hiatal hernia. Approximately 2.3 cm lateral segment left hepatic cyst. Liver, gallbladder, bile ducts, pancreas, patel creatic duct, and adrenal glands are otherwise unremarkable. Normal splenic size. Pinpoint nonobstructing right renal calculus. There is interval passage of the previously reported distal left ureteral calculus which is no longer identified, as well as resolution of prior reported mild left hydroureteronephrosis. Normal caliber of the abdominal aorta. No intraperitoneal or retroperitoneal or pelvic mass lesion or adenopathy or ascites. Mild prostate enlargement. The urinary bladder is relatively evacuated, unremarkable. Diverticulosis of the colon; no CT evidence of diverticulitis. Normal appendix. No bowel obstruction, bowel wall thickening, pneumatosis or intravenous peritoneal free air. Bilateral fat-containing inguinal hernias and small fat-containing umbilical hernia. Multilevel degenerative disc disease of the lumbar spine, moderately severe at L1 to and severe at L4 -5 and L5-S1, with associated mild retrolisthesis at L1-2 and L4-5. Degenerative change at the lower lumbosacral apophyseal joints but no spondylolisthesis. No suspicious osteolytic or osteoblastic lesions. IMPRESSION: Passage of 3 mm left distal ureteral calculus and resolution of left mild hydronephrosis and hydroureter since 01/18/2023 Pinpoint nonobstructing right renal calculus Reviewed, dictated and finalized at Location A. Reviewed, dictated and finalized at location L. IMPRESSION: Passage of 3 mm left distal ureteral calculus and resolution of le ft mild hydronephrosis and hydroureter since 01/18/2023 Pinpoint nonobstructing right renal calculus
== END ==
PROVIDERS: PCP Family Medicine; Visit Provider Urology
DX: N20.0 Calculus of kidney (principal)
CPT/HCPCS: 74176

== ENCOUNTER 2023-07-27 11:36 | Outpatient (CLI) | payer OTHER, SELFPAY ==
[2023-07-27 19:03] LABS: Alanine Aminotransferase 22 U/L (6-50); Albumin Level 4.4 g/dL (3.5-5.1); Alkaline Phosphatase 87 U/L (38-126); Anion Gap 5 mmol/L (4-12); Aspartate Amino Transferase 41 U/L (17-59); Blood Urea Nitrogen 15 mg/dL (9-20); Calcium 9.2 mg/dL (8.4-10.2); Carbon Dioxide 29 mmol/L (22-30); Chloride 106 mmol/L (98-107); Cholesterol 179 mg/dL (0-200); Estimated Glomerular Filt Rate > 60; Glucose 77 mg/dL (65-110); HDL Direct 55 mg/dL; Potassium 4.4 mmol/L (3.4-5.0); Sodium 140 mmol/L (137-145); Triglycerides 128 mg/dL (<150)
[2023-07-27 19:15] LABS: LDL Cholesterol Direct 101 mg/dL
[2023-07-27 19:19] LABS: Basophils Percent Auto 0.5 % (0.2-1.2); Eosinophils Absolute Auto 0.4 K/mm3 (0-0.3); Eosinophils Percent Auto 4.6 % (0-4.4); Hematocrit 48.2 % (42.0-52.0); Hemoglobin 16.1 g/dL (14.0-18.0); Immature Granulocyte Absolute 0.02 K/mm3 (0.00-0.031); Immature Granulocyte Percent A 0.2 % (0-0.5); Lymphocytes Percent Auto 19.7 % (18.3-44.2); Mean Corpuscular HGB Conc 33.4 g/dl (32-36); Mean Corpuscular Hemoglobin 29.7 pg (26-34); Mean Corpuscular Volume 88.9 fl (80-100); Mean Platelet Volume 11.7 fl (7.4-10.4); Monocytes Absolute Auto 0.6 K/mm3 (0.1-0.6); Monocytes Percent Auto 6.8 % (2.6-8.5); Neutrophils Absolute Auto 5.9 K/mm3 (1.3-6.7); Neutrophils Percent Auto 68.2 % (45.5-73.1); Platelet Count Result 258 k/mm3 (150-375); Red Blood Count 5.42 M/mm3 (4.6-6.20); Red Cell Distribution Width 12.8 % (11.5-14.5); White Blood Count 8.7 K/mm3 (4.5-10.0)
== END 2023-07-27 11:37 | disposition home or self-care (01) ==
LOC: ANHGOSHLAB 11:38
PROVIDERS: PCP Family Medicine; Visit Provider Family Medicine
DX: D72.829 Elevated white blood cell count, unspecified (principal); E78.2 Mixed hyperlipidemia; I10 Essential (primary) hypertension
CPT/HCPCS: 36415; 80053; 80061; 85025

== ENCOUNTER 2023-08-04 00:04 | Day surgery (SDC) | payer OTHER, SELFPAY ==
[2023-07-20 13:54] VITALS: BMI 33.0
[2023-08-04 07:00] VITALS: BP 147/83; PULSE 63; RESP 18; TEMP 36.4; O2SAT 98
[2023-08-04] MEDS: LACTATED RINGERS 1,000 ML 150 ML IV CONT (07:11)
--- NOTE | 2023-08-04 07:50 | PM.HPGS ---
History of Present Illness History of Present Illness Consent: Risks, benefits, and alternatives have been discussed and questions answered. Patient agrees to proceed with procedure. Chief complaint: neoplasm screening Narrative: Pete Larose is a 62 year old male here for colonoscopy, last one in 2018, father had colon cancer Review of Systems Review of Systems: All systems reviewed & are unremarkable except as noted in HPI and below PMFSH Past Medical History Medical History (Updated 08/04/23 @ 07:53 by Harvey Nixon MD) Carpal tunnel syndrome of right wrist Erectile dysfunction Family history of colon cancer in father H/O renal calculi Hypertension Mixed hyperlipidemia Prediabetes Sleep apnea Family History Family History Sibling Acute myocardial infarction Cerebrovascular accident Mother Cerebrovascular accident Father Colon cancer Other Carcinoma of colon Family history of coronary artery disease Family history of malignant neoplasm of breast in first degree relative Malignant neoplasm of prostate Social History Social History Years smoked: 5 Smoking status: Former smoker Tobacco type: cigarettes Second hand tobacco smoke exposure: No Additional smoking assessment comments: recreational Alcohol intake: current Drinks per week: 1 Substance use: current Substance use type: marijuana Last use: once/twice a year Lack of Transportation: No Lack of Food: Never True Current Housing: I Have Housing Concerned About Future Housing: No Difficulty Paying Gas/Electric Bills: No Difficulty Paying for Meds: No Currently Unemployed: No Education: Bachelor's Degree Difficulty w/ Childcare or Family Care: No Living arrangements: with family Additional occupation/education comments: Self employed Gender identity (if verbalized by the patient): Male Sexual Orientation (if Verbalized by the Patient): Straight or Heterosexual Spiritual care concerns: No Agree to blood products: Yes Meds Home Medications and Allergies Home Medications Medication Instructions Recorded Confirmed Type tadalafil 20 mg tablet (Cialis) 20 mg PO DAILY PRN sexual activity 06/13/22 07/28/23 Rx #9 tabs simvastatin 10 mg tablet (Zocor) 10 mg PO DAILY #90 tabs 09/12/22 07/28/23 Rx metoprolol tartrate 25 mg tablet 12.5 mg PO BID #90 tabs 12/11/22 08/04/23 Rx hydrocodone 5 mg-acetaminophen 325 1 tablet PO Q6H PRN pain #7 tabs 01/18/23 07/28/23 Rx mg tablet ketorolac 10 mg tablet 10 mg PO Q6H PRN pain 5 days #14 01/18/23 07/28/23 Rx tabs ondansetron 4 mg disintegrating 4 mg PO Q6H PRN nausea and 01/18/23 07/28/23 Rx tablet vomiting #14 tabs tamsulosin 0.4 mg capsule (Flomax) 0.4 mg PO DAILY #90 caps 02/16/23 07/28/23 Rx Allergies Allergy/AdvReac Type Severity Reaction Status Date / Time No Known Allergies Allergy Verified 08/04/23 06:56 Vital Signs Vital Signs - 24 hr 08/04/23 07:00 Temperature 97.5 F L Pulse Rate 63 Respiratory Rate 18 Blood Pressure 147/83 H Pulse Oximetry 98 Oxygen Delivery Room Air Exam Const: General: comfortable and no acute distress HENMT: Face/Nose/Sinus: Normal nares present Eyes: General: appearance normal, both eyes and all related structures Neck: Neck: no JVD Resp: Auscultation: clear to auscultation bilaterally Cardio: Rate: regular rate Rhythm: regular rhythm GI: Inspection: non-distended GI Palp: Yes Soft to palpation Skin: General skin exam: normal color Neuro: General: gait normal Speech: normal speech Extrem: General: normal to inspection Psych: Mental Status: mental status grossly normal Assessment and Plan Assessment and plan (1) Family history of colon cancer in father: Code(s): Z80.0 - Family history of malignant neoplasm of digestive organs
--- NOTE | 2023-08-04 07:52 | WPDANESEPPF ---
Anes - Initial Pre Proc Eval Procedure: Operation Date: 08/04/23 08:00 Proposed Procedures p Screening Colonoscopy - Harvey Nixon MD Date/Time: 08/04/23 07:52 Surgeon: Harvey Nixon MD Pre Op Diagnosis: neoplasm screening Patient Data Age: 62 Gender: M Height: 1.78 m Weight: 103.7 kg Last Vital Signs Temp 97.5 F L 08/04/23 07:00 Pulse 63 08/04/23 07:00 Resp 18 08/04/23 07:00 BP 147/83 H 08/04/23 07:00 Pulse Ox 98 08/04/23 07:00 O2 Del Method Room Air 08/04/23 07:00 Allergies Allergy/AdvReac Type Severity Reaction Status Date / Time No Known Allergies Allergy Verified 08/04/23 06:56 Home Medications Medication Instructions Recorded Confirmed Type tadalafil 20 mg tablet (Cialis) 20 mg PO DAILY PRN sexual activity 06/13/22 07/28/23 Rx #9 tabs simvastatin 10 mg tablet (Zocor) 10 mg PO DAILY #90 tabs 09/12/22 07/28/23 Rx metoprolol tartrate 25 mg tablet 12.5 mg PO BID #90 tabs 12/11/22 08/04/23 Rx hydrocodone 5 mg-acetaminophen 325 1 tablet PO Q6H PRN pain #7 tabs 01/18/23 07/28/23 Rx mg tablet ketorolac 10 mg tablet 10 mg PO Q6H PRN pain 5 days #14 01/18/23 07/28/23 Rx tabs ondansetron 4 mg disintegrating 4 mg PO Q6H PRN nausea and 01/18/23 07/28/23 Rx tablet vomiting #14 tabs tamsulosin 0.4 mg capsule (Flomax) 0.4 mg PO DAILY #90 caps 02/16/23 07/28/23 Rx Patient hx anesthesia problems: none Family hx anesthesia problems: none Results Review: All pre-operative results and documents have been reviewed as part of the pre-operative evaluation. [facility] Past Medical History Medical History Carpal tunnel syndrome of right wrist Erectile dysfunction H/O renal calculi Hypertension Mixed hyperlipidemia Prediabetes Sleep apnea Family History Family History Sibling Acute myocardial infarction Cerebrovascular accident Mother Cerebrovascular accident Father Colon cancer Other Carcinoma of colon Family history of coronary artery disease Family history of malignant neoplasm of breast in first degree relative Malignant neoplasm of prostate Social History Social History Years smoked: 5 Smoking status: Former smoker Tobacco type: cigarettes Second hand tobacco smoke exposure: No Additional smoking assessment comments: recreational Alcohol intake: current Drinks per week: 1 Substance use: current Substance use type: marijuana Last use: once/twice a year Lack of Transportation: No Lack of Food: Never True Current Housing: I Have Housing Concerned About Future Housing: No Difficulty Paying Gas/Electric Bills: No Difficulty Paying for Meds: No Currently Unemployed: No Education: Bachelor's Degree Difficulty w/ Childcare or Family Care: No Living arrangements: with family Additional occupation/education comments: Self employed Gender identity (if verbalized by the patient): Male Sexual Orientation (if Verbalized by the Patient): Straight or Heterosexual Spiritual care concerns: No Agree to blood products: Yes Anes - Eval Final PreProcedure Day of Procedure 08/04/23 07:52 Patient weight: obese Heart: regular rate and rhythm Lungs: clear to auscultation Airway: Mallampati scale class II Neurological: alert and oriented Last oral intake: >/= 8 hours ASA classification: III Emergent: no Anesthetic plan: proceed Anesthesia type and monitoring: general GIVS and standard monitoring Results Review: All pre-operative results and documents have been reviewed as part of the pre-operative evaluation. Informed Consent: The patient's anesthetic plan and its attendant risks and benefits were discussed with the patient/family/POA. Questions were solicited and answers provided to the satisfaction of the patient/famil
[2023-08-04 08:07] VITALS: BP 108/69; PULSE 65; RESP 23; O2SAT 98
[2023-08-04 08:17] VITALS: BP 122/68; PULSE 67; RESP 20; O2SAT 98
[2023-08-04 08:27] VITALS: BP 120/74; PULSE 61; RESP 20; O2SAT 97
== END 2023-08-04 08:37 | disposition home or self-care (01) ==
PROVIDERS: PCP Family Medicine; Visit Provider Internal Medicine Gastroenterology
PROC: 0DJD8ZZ Inspection of Lower Intestinal Tract, Via Natural or Artificial Opening Endoscopic (ICD-10-PCS; CPT 45378; principal; 2023-08-04 08:00)
DX: Z12.11 Encounter for screening for malignant neoplasm of colon (principal); D12.4 Benign neoplasm of descending colon; K57.30 Diverticulosis of large intestine without perforation or abscess without bleeding; K64.8 Other hemorrhoids; Z80.0 Family history of malignant neoplasm of digestive organs; I10 Essential (primary) hypertension; E78.2 Mixed hyperlipidemia; R73.03 Prediabetes; G47.30 Sleep apnea, unspecified; Z79.891 Long term (current) use of opiate analgesic; Z87.891 Personal history of nicotine dependence; E66.9 Obesity, unspecified; Z68.32 Body mass index [BMI] 32.0-32.9, adult
CPT/HCPCS: 45385; 88305; J2704; J7120

== ENCOUNTER 2023-09-30 12:11 | Outpatient (CLI) | payer OTHER, SELFPAY ==
--- NOTE | ~2023-09-30 | XR_ITS ---
EXAMINATION: XR abdomen/kub 1V DATE: 09/30/2023 12:28 INDICATION: Right ureteral stone. TECHNIQUE: A supine view of the abdomen on 2 radiographs was obtained. COMPARISON: CT abdomen and pelvis 02/05/2023, radiographs 01/18/2023 FINDINGS: There are no dilated loops of bowel. There is no visible urolithiasis. There are vascular c alcifications in the pelvis. IMPRESSION: 1. No visible urolithiasis. Reviewed, dictated and finalized at location A. IMPRESSION: 1. No visible urolithiasis.
--- NOTE | ~2023-09-30 | US_ITS ---
EXAMINATION: US renal BI DATE: 09/30/2023 12:42 INDICATION: Right ureteral stone TECHNIQUE: Multiple ultrasound grayscale images of the kidneys were obtained. COMPARISON: None. FINDINGS: The right kidney measures 12.3 x 6.0 x 5.0 cm. The left kidney measures 10.3 x 6.0 x 5.6 cm. The kidn eys demonstrate normal echogenicity. There is no hydronephrosis in either kidney. No stones identifi ed. The bladder is normal. IMPRESSION: 1. Normal kidneys without hydronephrosis. Reviewed, dictated and finalized at location B.
== END 2023-09-30 12:12 ==
LOC: MICIMG 12:12
PROVIDERS: PCP Family Medicine; Visit Provider Urology
DX: N20.1 Calculus of ureter (principal)
CPT/HCPCS: 74018; 76775

== ENCOUNTER 2023-10-27 14:10 | Outpatient (CLI) | payer MEDICARE, OTHER, SELFPAY ==
--- NOTE | ~2023-10-27 | CT_ITS ---
EXAMINATION: CT abdomen pelvis wo con DATE: 10/27/2023 14:31 INDICATION: Rt Ureteral Stone TECHNIQUE: Computed tomography (CT) of the abdomen and pelvis was performed without intravenous contr ast. Automated exposure control and iterative reconstruction technique were employed. The dose-length product was 640.89 mGy-cm. COMPARISON: 02/05/2023; renal ultrasound 09/30/2023. FINDINGS: Lower thorax: Unremarkable Liver: Left lobe cyst. Biliary/Gallbladder: Gallbladder is normal. No bile duct dilation. Pancreas: No mass or duct dilation. Spleen: Normal. Adrenals:No mass. Kidneys: No suspicious mass, obstructing stone, or hydronephrosis. GI tract: No small or large bowel dilation. Normal appendix. Diverticulosis without diverticulitis. Mesentery/Peritoneum: No ascites, mass, or free air. Retroperitoneum: No mass. Atherosclerotic abdominal aortic and/or arterial calcifications. Pelvis: Partially distended urinary bladder with mild wall stranding. Prostatomegaly. Soft Tissues: Small fat-containing umbilical and bilateral inguinal hernias. Bones: No acute osseous finding. IMPRESSION: No acute abdominopelvic process detected. Specifically, no CT evidence of nephrolithiasis or obstruct leanne uropathy. Urinary bladder wall inflammatory changes, may represent cystitis and/or inflammation from outlet obs truction. Reviewed, dictated and finalized at location K. IMPRESSION: No acute abdominopelvic process detected. Specifically, no CT evidence of nephr olithiasis or obstructive uropathy. Urinary bladder wall inflammatory changes, may represent cystitis and/or inflam mation from outlet obstruction.
== END 2023-10-27 14:11 | disposition home or self-care (01) ==
PROVIDERS: PCP Family Medicine; Visit Provider Urology
DX: N20.1 Calculus of ureter (principal)
CPT/HCPCS: 74176

== ENCOUNTER 2024-01-11 09:00 | Outpatient (CLI) | payer MEDICARE, OTHER, SELFPAY ==
[2024-01-11 13:00] LABS: Basophils Percent Auto 0.5 % (0.2-1.2); Eosinophils Absolute Auto 0.4 K/mm3 (0-0.3); Eosinophils Percent Auto 5.7 % (0-4.4); Hematocrit 48.8 % (42.0-52.0); Hemoglobin 16.5 g/dL (14.0-18.0); Immature Granulocyte Absolute 0.03 K/mm3 (0.00-0.031); Immature Granulocyte Percent A 0.4 % (0-0.5); Lymphocytes Absolute Auto 1.49 K/mm3 (0.9-3.2); Lymphocytes Percent Auto 20.3 % (18.3-44.2); Mean Corpuscular HGB Conc 33.8 g/dl (32-36); Mean Corpuscular Hemoglobin 30.4 pg (26-34); Mean Corpuscular Volume 89.9 fl (80-100); Mean Platelet Volume 11.1 fl (7.4-10.4); Monocytes Absolute Auto 0.5 K/mm3 (0.1-0.6); Neutrophils Absolute Auto 4.8 K/mm3 (1.3-6.7); Neutrophils Percent Auto 66.1 % (45.5-73.1); Platelet Count Result 277 k/mm3 (150-375); Red Blood Count 5.43 M/mm3 (4.6-6.20); Red Cell Distribution Width 12.6 % (11.5-14.5); White Blood Count 7.3 K/mm3 (4.5-10.0)
[2024-01-11 13:12] LABS: Alanine Aminotransferase 30 U/L (6-50); Albumin Level 4.4 g/dL (3.5-5.1); Alkaline Phosphatase 87 U/L (38-126); Anion Gap 7 mmol/L (4-12); Aspartate Amino Transferase 73 U/L (17-59); Bilirubin,Total 0.9 mg/dL (0.2-1.3); Blood Urea Nitrogen 14 mg/dL (9-20); Calcium 8.9 mg/dL (8.4-10.2); Carbon Dioxide 30 mmol/L (22-30); Chloride 101 mmol/L (98-107); Cholesterol 185 mg/dL (0-200); Estimated Glomerular Filt Rate > 60; Glucose 99 mg/dL (65-110); HDL Direct 56 mg/dL; Potassium 4.6 mmol/L (3.4-5.0); Sodium 138 mmol/L (137-145); Triglycerides 102 mg/dL (<150)
[2024-01-11 13:23] LABS: LDL Cholesterol Direct 90 mg/dL
[2024-01-11 13:43] LABS: Prostate Specific Antigen 1.3 ng/mL (< OR = 4.0)
[2024-01-11 14:21] LABS: Hemoglobin A1C 5.5 % (<5.7)
== END 2024-01-11 09:01 | disposition home or self-care (01) ==
LOC: ANHGOSHLAB 09:03
PROVIDERS: PCP Family Medicine; Visit Provider Family Medicine
DX: R73.03 Prediabetes (principal); E78.2 Mixed hyperlipidemia; I10 Essential (primary) hypertension; D72.829 Elevated white blood cell count, unspecified; Z12.5 Encounter for screening for malignant neoplasm of prostate
CPT/HCPCS: 36415; 80053; 80061; 83036; 84153; 85025; G0103

== ENCOUNTER 2024-06-15 09:31 | Outpatient (CLI) | payer MEDICARE, OTHER, SELFPAY ==
--- NOTE | ~2024-06-15 | XR_ITS ---
EXAMINATION: XR cervical spine 4-5V DATE: 06/15/2024 10:09 INDICATION: Neck pain. TECHNIQUE: 6 views of cervical spine including standing views and flexion and extension views were ob tained. COMPARISON: None. FINDINGS: There is no abnormal motion with flexion or extension. Alignment is normal. Vertebral body heights are normal. There is mildly decreased disc height at C4-C5 and moderately decreased disc heig ht at C5-C6 and C6-C7. There is multilevel mild facet joint osteoarthritis. There is mild central can al stenosis at C5-C6 and C6-C7. No prevertebral soft tissue swelling. IMPRESSION: 1. Moderate cervical spondylosis. Reviewed, dictated and finalized at location B.
--- NOTE | ~2024-06-15 | XR_ITS ---
EXAMINATION: XR shoulder LT min 2V DATE: 06/15/2024 10:08 INDICATION: Left shoulder pain. TECHNIQUE: 3 views of left shoulder were obtained. COMPARISON: None. FINDINGS: Alignment is normal. No fracture. There is mild osteoarthritis of glenohumeral joint and se jem osteoarthritis of acromioclavicular joint. IMPRESSION: 1. Polyarticular osteoarthritis. Reviewed, dictated and finalized at location B.
== END 2024-06-15 09:32 | disposition home or self-care (01) ==
LOC: MICIMG 09:33
PROVIDERS: PCP Family Medicine; Visit Provider Family Medicine
DX: M47.812 Spondylosis without myelopathy or radiculopathy, cervical region (principal); M25.512 Pain in left shoulder
CPT/HCPCS: 72050; 73030

== ENCOUNTER 2024-08-01 10:20 | Outpatient (CLI) | payer MEDICARE, OTHER, SELFPAY ==
[2024-08-01 11:26] LABS: Basophils Percent Auto 0.4 % (0.2-1.2); Eosinophils Absolute Auto 0.4 K/mm3 (0-0.3); Eosinophils Percent Auto 4.9 % (0-4.4); Hematocrit 43.6 % (42.0-52.0); Hemoglobin 15.6 g/dL (14.0-18.0); Immature Granulocyte Absolute 0.02 K/mm3 (0.00-0.031); Immature Granulocyte Percent A 0.3 % (0-0.5); Lymphocytes Absolute Auto 1.46 K/mm3 (0.9-3.2); Lymphocytes Percent Auto 20.4 % (18.3-44.2); Mean Corpuscular HGB Conc 35.8 g/dl (32-36); Mean Corpuscular Hemoglobin 30.8 pg (26-34); Mean Corpuscular Volume 86.2 fl (80-100); Mean Platelet Volume 10.6 fl (7.4-10.4); Monocytes Absolute Auto 0.4 K/mm3 (0.1-0.6); Neutrophils Absolute Auto 4.9 K/mm3 (1.3-6.7); Platelet Count Result 249 k/mm3 (150-375); Red Blood Count 5.06 M/mm3 (4.6-6.20); Red Cell Distribution Width 12.5 % (11.5-14.5); White Blood Count 7.2 K/mm3 (4.5-10.0)
[2024-08-01 11:40] LABS: Hemoglobin A1C 5.2 % (<5.7)
[2024-08-01 11:41] LABS: Alanine Aminotransferase 24 U/L (6-50); Albumin Level 4.2 g/dL (3.5-5.1); Alkaline Phosphatase 90 U/L (38-126); Anion Gap 8 mmol/L (4-12); Aspartate Amino Transferase 40 U/L (17-59); Bilirubin,Total 0.9 mg/dL (0.2-1.3); Blood Urea Nitrogen 14 mg/dL (9-20); Calcium 8.6 mg/dL (8.4-10.2); Carbon Dioxide 24 mmol/L (22-30); Chloride 106 mmol/L (98-107); Cholesterol 189 mg/dL (0-200); Estimated Glomerular Filt Rate > 60; Glucose 91 mg/dL (65-110); HDL Direct 53 mg/dL; Potassium 4.1 mmol/L (3.4-5.0); Sodium 138 mmol/L (137-145); Triglycerides 96 mg/dL (<150)
[2024-08-01 11:52] LABS: LDL Cholesterol Direct 97 mg/dL
--- OUTSIDE RECORDS SUMMARY | 2024-08-01 11:53 | XMS_ITS | Encounter Summary ---
Author Organization [facility] Address [facility] [place] [address] Care Team Providers Care Wrapper Stripper Name Role Phone Nazia Yepez MD Primary Care Provider [phone] Encounter Details Date Type Department Care Team (Late st Contact Info) Description 03/09/2020 Prep for Procedure Nikolai Pre-Admission Testing [address] [place], [place] [id number] Martir Farley MD [address] [facility] [place], [place] [id number] Social History Tobacco Use Types Packs/Day Years Used Date Smoking Tobacco: Never Smokeless Tobacco: Never Alcohol Use Standard Drinks/Week Comments Not Currently 0 (1 standard drink = 0.6 oz pur e alcohol) <2 PER MONTH Sex and Gender Information Value Date Recorded Sex Assigned at Not on file Legal Sex Male 3:46 PM TELEMARKETING SALES REPRESENTATIVE Gender Identity Not on file Sexual Orientation Not on file COVID-19 Exposure Response Date Recorded In the last month, have you been in contact with someone who was confirmed or suspected to have Coronavirus / COVID-19? No / Unsure 03/09/2020 12:10 PM TELEMARKETING SALES REPRESENTATIVE documented as of this encounter Plan of Treatment Not on file documented as of this encounter Results * PRE-SURGICAL/PRE-PROCEDURE CORONAVIRUS (COVID 19) (03/06/2020 10:35 AM TELEMARKETING SALES REPRESENTATIVE) CORONAVIRUS SARS COV 2 PCR (RESP) NOT DETECTED NOT DETECTED 03/08/2020 11:22 AM TELEMARKETING SALES REPRESENTATIVE [facility] Comment: A Not Detected (negative) test result for this test means that SARS- CoV-2 RNA was not present in the specimen above the limit of detection. A negative result does not rule out the possibility of COVID-19 and should not be used as the sole basis for treatment or patient management decisions. If COVID-19 is still suspected, based on exposure history together with other clinical findings, re-testing should be considered in consultation with public health authorities. Laboratory test results should always be considered in the context of clinical observations and epidemiological data in making a final diagnosis and patient management decisions. Please review the Fact Sheets and FDA authorized labeling available for health care providers and patients using the following websites: https://www.[employer] [place].Lucky Ant/home/Covid-19/HCP/Quest[employer]/fact- sheet.html https://www.[employer] [place].[employer]ucky Ant/home/Covid-19/Patients/ Quest[employer]/fact-sheet.html This test has been authorized by the FDA under an Emergency Use Authorization (EUA) for use by authorized laboratories. Due to the current public health emergency, [facility] is receiving a high volume of samples from a wide variety of swabs and media for COVID-19 testing. In order to serve patients during this public health crisis, samples from appropriate clinical sources are being tested. Negative test results derived from specimens received in non-commercially manufactured viral collection and transport media, or in media and sample collection kits not yet authorized by FDA for COVID-19 testing should be cautiously evaluated and the patient potentially subjected to extra precautions such as additional clinical monitoring, including collection of an additional specimen. Methodology: Nucleic Acid Amplification Test (NAAT) includes RT-PCR or TMA Additional information about COVID-19 can be found at the [facility] website: www.[email or web address].Lucky Ant/Covid19. Test performed at [facility] [address] [address] Director: LUDY WALSH DO,MPH FIRST TEST YES 03/06/2020 1:14 PM [facility] EMPLOYED IN HEALTHCARE NO 03/06/2020 1:14 PM [facility] SYMPTOMATIC DEFINED BY CDC NO 03/06/2020 1:14 PM [facility] DATE OF SYMPTOM ONSET NO 03/06/2020 1:23 PM [facility] HOSPITALIZATION STATUS NO 03/06/2020 1:14 PM TELEMARKETING SALES REPRESENTATIVE [facility] PATIENT IN ICU NO 03/06/2020 1:14 PM TELEMARKETING SALES REPRESENTATIVE [facility] 03/06/2020 1:14 PM TELEMARKETING SALES REPRESENTATIVE [facility] NOT 03/06/2020 1:23 PM TELEMARKETING SALES REPRESENTATIVE [facility] PATIENT'S RACE WHITE OR 03/06/2020 1:14 PM TELEMARKETING SALES REPRESENTATIVE [facility] ETHNICITY NONHISPANIC 03/06/2020 1:14 PM TELEMARKETING SALES REPRESENTATIVE [facility] SOURCE (QST) NASOPHARYNGEAL SWAB 03/06/2020 1:14 PM TELEMARKETING SALES REPRESENTATIVE [facility] NASOPHARYNGEAL SWAB / Unknown 03/06/2020 10:35 AM TELEMARKETING SALES REPRESENTATIVE Martir Farley MD MICROBIOLOGY - GENER AL ORDERABLES Final Result [facility] [address] [place] [address], [place] [address], documented in this encounter Visit Diagnoses Diagnosis Preoperative testing- Primary Preoperative examination, unspecified documented in this encounter Care Teams Wrapper Stripper Relationship Specialty Start Date End Date Nazia Yepez MD PCP - General FAMILY PRACTICE 03/09/20 documented as of this encounter
--- OUTSIDE RECORDS SUMMARY | 2024-08-01 11:53 | XMS_ITS | Clinical Summary ---
Author Organization [facility] Address [address] [place] [address] Care Team Providers Care Advertising Layout Worker Name Role Phone Nazia Yepez MD Primary Care Provider [phone] Allergies No known active allergies Medications metoprolol tartrate 25 MG tablet Take 25 mg by mouth 2 (two) times daily. 1/2 TAB MORNING, 1/2TAB EVENING Active simvastatin 10 MG tablet Take 10 mg by mouth nightly at bedtime. Active tamsulosin 0.4 MG Cap Take 0.4 mg by mouth nightly. Active HYDROcodone-tee taminophen 5-325 MG tablet Take 1 tablet by mouth every 8 (eight) hours as needed for Pain. Active Multiple Vitamins-Minera ls (MULTIVITAMIN ADULT OR) Take 1 tablet by mouth daily. Active acetaminophen 500 MG tablet Take 500 mg by mouth every 8 (eight) hours as needed for Pain. TAKE TWO EVERY EIGHT HOURS Active Ergocalciferol (VITAMIN D2 OR) Take 1 tablet by mouth daily. Active vitamin B-12 (VITAMIN B12) 100 MCG tablet Take 50 mcg by mouth daily. Active Active Problems No known active problems Resolved Problems Problem Noted Date Diagnosed Date Resolved Date Right ureteral stone 03/09/2020 020 Family History Medical History Relation Comments No Known Problems Daughter Cancer Father COLON Cancer Mother BREAST Stroke Mother No Known Problems Son Relation Status Comments Daughter Alive Father Mother Son Alive Social History Tobacco Use Types Packs/Day Years Used Date Smoking Tobacco: Never Smokeless Tobacco: Never Alcohol Use Standard Drinks/Week Comments Not Currently 0 (1 standard drink = 0.6 oz pur e alcohol) <2 PER MONTH Sex and Gender Information Value Date Recorded Sex Assigned at Not on file Legal Sex Male 3:46 PM VALVE SEATER OPERATOR Gender Identity Not on file Sexual Orientation Not on file Last Filed Vital Signs Vital Sign Reading Time Taken Comments Blood Pressure 144/90 03/09/2020 6:10 PM VALVE SEATER OPERATOR Pulse 64 03/09/2020 6:10 PM VALVE SEATER OPERATOR Temperature 36.6 C (97.8 F) 03/09/2020 6:10 PM VALVE SEATER OPERATOR Respiratory Rate 16 03/09/2020 6:10 PM VALVE SEATER OPERATOR Oxygen Saturation 95% 03/09/2020 6:10 PM VALVE SEATER OPERATOR Inhaled Oxygen Concentration - - Weight 101.4 kg (223 lb 8.7 oz) 020 12:30 PM VALVE SEATER OPERATOR Height 177.8 cm (5' 10 ) 02/29/2020 1:06 PM VALVE SEATER OPERATOR Body Mass Index 32.08 02/29/2020 1:06 PM VALVE SEATER OPERATOR Plan of Treatment Health Maintenance Due Date Last Done Comments Colorectal Cancer Screening Colonoscopy (10 Years) 1958 Hepatitis C 1976 DTaP, Tdap and Td Vaccines ( 1 - Tdap) 1977 Pneumococcal Vaccine: 50+ Ye ars (1 of 1 - PCV) 2008 Zoster Vaccines (2 of 3) 09/27/2018 08/02/2018 COVID-19 Vaccine (1 - 2023-2 5 season) 2023 RSV Immunization or 60+ Years (1 - 1-dose 75+ series) 2033 Meningococcal B Vaccine Aged Out No l onger eligible based on patient's age to complete this topic Meningococcal Vaccine Aged Out No mandy marielle eligible based on patient's age to complete this topic RSV Immunizations Under 20 Months Aged Out No longer eligible based on patient's age to complete this topic Medical Devices Implanted Type Area Drafting Layout Man Device Identifier Shelf Expiration Date Model / Serial / Lot Stent Uret 6fr 26cm Pigtl Crv Taper Tip Bldr Mrk - [id number] Implanted:Qty: 1 on 03/09/2020 by Martir Farley MD at [facility] Stent Right: [email or web address] 12/18/2022 [id number] / / [id number] Insurance Savorfull [employer] [facility] Member Subscriber Plan / Payer (Ef fective 2016-Present) Name:Pete Larose Relation to Subscriber:Self Name:Pete Larose Payer ID:Not on file Type:Not on file Address: [facility] [id number] [place] [phone] Care Teams Advertising Layout Worker Relationship Specialty Start Date End Date Nazia Yepez MD PCP - General FAMILY PRACTICE 03/09/20
== END 2024-08-01 10:21 | disposition home or self-care (01) ==
LOC: ANHGOSHLAB 10:22
PROVIDERS: PCP Family Medicine; Visit Provider Student in an Organized Health Care Education/Training Program
DX: I10 Essential (primary) hypertension (principal); E78.2 Mixed hyperlipidemia; R73.03 Prediabetes; R53.83 Other fatigue
CPT/HCPCS: 36415; 80053; 80061; 83036; 85025

== ENCOUNTER 2024-11-23 08:45 | Outpatient (CLI) | payer MEDICARE, SELFPAY ==
--- NOTE | ~2024-11-23 | XR_ITS ---
EXAM/PROCEDURE: XR abdomen/kub 1V - 11/23/2024 8:57 CDT HISTORY: 64 years old Male with follow up for kidney stones 2-3 years ago COMPARISON: None available. TECHNIQUE: AP view(s) of the abdomen. FINDINGS: The bowel gas pattern is normal. There is no evidence for obstruction. No free intraperitoneal air is identified on this supine radiograph. No radiopaque large calculus seen. The visualized soft tissue shadows are unremarkable. No gross bony abnormalities are seen. Visualized portions of lung bases are clear. IMPRESSION: No acute process. Reviewed, dictated and finalized at location A. IMPRESSION: No acute process.
== END 2024-11-23 08:46 | disposition home or self-care (01) ==
PROVIDERS: PCP Family Medicine; Visit Provider Urology
DX: N20.0 Calculus of kidney (principal)
CPT/HCPCS: 74018

== ENCOUNTER 2025-02-22 07:56 | Outpatient (CLI) | payer MEDICARE, SELFPAY ==
[2025-02-22 15:51] LABS: Hemoglobin A1C 5.5 % (<5.7)
[2025-02-22 17:40] LABS: Alanine Aminotransferase 28 U/L (6-50); Albumin Level 4.3 g/dL (3.5-5.1); Alkaline Phosphatase 87 U/L (38-126); Anion Gap 7 mmol/L (4-12); Aspartate Amino Transferase 56 U/L (17-59); Bilirubin,Total 0.6 mg/dL (0.2-1.3); Blood Urea Nitrogen 16 mg/dL (9-20); Calcium 8.5 mg/dL (8.4-10.2); Carbon Dioxide 28 mmol/L (22-30); Chloride 103 mmol/L (98-107); Cholesterol 176 mg/dL (0-200); Estimated Glomerular Filt Rate > 60; Glucose 79 mg/dL (65-110); HDL Direct 57 mg/dL; Potassium 4.5 mmol/L (3.4-5.0); Sodium 138 mmol/L (137-145); Total Protein 7.5 g/dL (6.3-8.2); Triglycerides 53 mg/dL (<150)
[2025-02-22 18:22] LABS: Prostate Specific Antigen 1.0 ng/mL (< OR = 4.0)
== END 2025-02-22 07:57 | disposition home or self-care (01) ==
PROVIDERS: PCP Family Medicine Adolescent Medicine
DX: E78.2 Mixed hyperlipidemia (principal); Z12.5 Encounter for screening for malignant neoplasm of prostate; I10 Essential (primary) hypertension; R73.03 Prediabetes
CPT/HCPCS: 36415; 80053; 80061; 83036; 84153; G0103